=== PATIENT | female | born 1995 ===

== ENCOUNTER 2017-11-10 11:03 | Emergency (ER) | payer SELFPAY ==
[2017-11-10 11:55] LABS: Bilirubin Negative (Negative); Blood, Urine Negative (Negative); Clarity TURBID (Clear); Glucose, Urine (Dipstick) Negative (Negative); Leukocyte Negative (Negative); Nitrite Negative (Negative); Protein, Urine (Dipstick) Negative (Neg-Trace); Specific Gravity, Urine 1.021 (1.002-1.036); Urobilinogen 0.2 mg/dL (0.2-1.0)
[2017-11-10 12:06] LABS: Pregnancy Test - Urine (BHCG) Negative (Negative); Pregu Control Background? CLEAR/WHITE (CLR/WHITE); Pregu Control Bar Appear? YES (CONTROL BAR); Specific Gravity 1.021 (1.002-1.036)
[2017-11-10] MEDS ORDERED: Ketorolac Tromethamine 60 MG/2 ML VIAL ONE (14:05)
== END 2017-11-10 14:34 | disposition home or self-care (01) ==
LOC: ERS 11:03
DX: M62.830 Muscle spasm of back (principal); F41.9 Anxiety disorder, unspecified; F32.9 Major depressive disorder, single episode, unspecified
CPT/HCPCS: 81003; 81025; 96372; J1885